=== PATIENT | male | born 1980 | race Two or more races ===

== ENCOUNTER 2017-06-27 15:23 | Inpatient (IN) | payer MEDICAID ==
[2017-06-27 16:04] LABS: BASOPHILS 0.3 % (0-2); EOSINOPHILS 1.3 % (0-7); HEMATOCRIT 33.5 % (42.0-54.0); HEMOGLOBIN 11.1 g/dL (13.5-17.5); IMMATURE GRANULOCYTES 0.4 % (0-5); LYMPHOCYTES 14.9 % (15-50); MCH 26.1 pg (26.0-34.0); MCHC 33.1 g/dL (31.0-37.0); MCV 78.6 fL (80.0-100.0); MEAN PLATELET VOLUME 9.7 fL (7.4-10.4); MONOCYTES 10.4 % (2-11); NEUTROPHILS 72.7 % (40-80); PLATELET COUNT 423 10x3/uL (130-400); RBC 4.26 10x6/uL (4.20-6.10); RDW 12.4 % (11.5-14.5); WBC 10.9 10x3/uL (4.8-10.8)
[2017-06-27 16:42] LABS: ALBUMIN 1.9 g/dL (3.4-5.0); ALKALINE PHOSPHATASE 145 U/L (46-116); ALT (SGPT) 60 U/L (10-68); BILIRUBIN - TOTAL 0.11 mg/dL (0.2-1.3); CALC OSMOLALITY 274 mosm/kg (275-300); CALCIUM 8.3 mg/dL (8.5-10.1); CARBON DIOXIDE 25.9 mmol/L (21.0-32.0); CHLORIDE - SERUM 94 mmol/L (98-107); GLUCOSE 372 mg/dL (74-106); POTASSIUM - SERUM 4.1 mmol/L (3.5-5.1); PROTEIN - SERUM 6.7 g/dL (6.4-8.2); SODIUM 130 mmol/L (136-145); UREA NITROGEN 9 mg/dL (7-18); eGFR NON AFRICAN AMERICAN 89 mL/min (90-120)
[2017-06-27 16:57] LABS: HEMOGLOBIN A1C 12.5 % (4.8-6.0)
[2017-06-27 17:36] VITALS: BP 137/92; BMI 29.6
--- NOTE | 2017-06-27 19:35 | NUR ---
RECIEVED SHIFT REPORT. PT IS LYING IN BED. ALERT AND ORIENTED AND ABLE TO VERBALIZE NEEDS. IV IS PATENT AND FLUIDS ARE RUNNING PER ORDER. PT IS AMBULATORY BUT WAS INSTRUCTED TO CALL FOR ANY ASSISTANCE. PT DENIES ANY PAIN AT THIS TIME. NO NEEDS ARE VERBALIZED AT THIS TIME. WILL CONTINUE TO MONITOR. SIDE RAILS ARE UP X 2. BED IS IN LOWEST POSITION. CALL LIGHT IS WITHIN REACH.
[2017-06-27 20:00] VITALS: BP 133/85
--- NOTE | 2017-06-27 21:50 | NUR ---
PT OFF FLOOR FOR CT AT THIS TIME.
--- NOTE | 2017-06-27 22:10 | NUR ---
PT RETURNED TO FLOOR FROM CT. FLUIDS HOOKED BACK UP. NO NEEDS VOICED. WILL MONITOR. SIDE RAILS X 2. BED LOW. CALL LIGHT IN REACH.
--- NOTE | 2017-06-27 22:19 | NUR ---
SHIFT ASSESMENT COMPLETED. ANTIBIOTIC HUNG PER ORDER. PT RECIEVED 8 UNITS INSULIN PER SLIDING SCALE FOR BYMJ=440. NO NEEDS ARE VOICED. WILL MONITOR. SIDE RAILS X 2. BED LOW. CALL LIGHT IN REACH.
[2017-06-28] VITALS (12 sets, daily range): BP systolic 118–175; BP diastolic 68–107
[2017-06-28 05:14] LABS: BASOPHILS 0.3 % (0-2); EOSINOPHILS 2.3 % (0-7); HEMATOCRIT 32.9 % (42.0-54.0); IMMATURE GRANULOCYTES 0.6 % (0-5); LYMPHOCYTES 18.9 % (15-50); MCHC 33.4 g/dL (31.0-37.0); MCV 77.8 fL (80.0-100.0); MEAN PLATELET VOLUME 9.4 fL (7.4-10.4); MONOCYTES 9.2 % (2-11); NEUTROPHILS 68.7 % (40-80); PLATELET COUNT 485 10x3/uL (130-400); RBC 4.23 10x6/uL (4.20-6.10); RDW 12.5 % (11.5-14.5); WBC 10.2 10x3/uL (4.8-10.8)
[2017-06-28 05:41] LABS: ALBUMIN 1.9 g/dL (3.4-5.0); ALKALINE PHOSPHATASE 141 U/L (46-116); ALT (SGPT) 64 U/L (10-68); BILIRUBIN - TOTAL 0.22 mg/dL (0.2-1.3); CALC OSMOLALITY 270 mosm/kg (275-300); CALCIUM 8.4 mg/dL (8.5-10.1); CARBON DIOXIDE 24.9 mmol/L (21.0-32.0); CHLORIDE - SERUM 98 mmol/L (98-107); POTASSIUM - SERUM 3.9 mmol/L (3.5-5.1); PROTEIN - SERUM 7.4 g/dL (6.4-8.2); SODIUM 133 mmol/L (136-145); UREA NITROGEN 9 mg/dL (7-18); eGFR NON AFRICAN AMERICAN 89 mL/min (90-120)
[2017-06-28 05:44] LABS: GLUCOSE 199 mg/dL (74-106)
--- NOTE | 2017-06-28 08:24 | NUR ---
AWAKE AND ALERT. ORIENTED X3. NO C/O AT THIS TIME. LUNGS ARE CLEAR BILATERALLY, NO COUGH NOTED. SKIN IS INTACT WITHOUT REDNESS EXCEPT LEFT SIDE OF GROIN WHICH IS REDDENED AND HARD.VERY TENDER TO TOUCH. WILL MONITOR. IV TO LEFT FOREARM IS PATENT WITHOUT REDNESS AT INSERTION SITE. NPO AT THIS TIME FOR SURGERY.
--- NOTE | 2017-06-28 08:30 | NUR ---
WAS UP TO SHOWER PER SELF. NO DIZZINESS OR PAIN WITH ACTIVITY. DENIES NEEDS
--- NOTE | 2017-06-28 10:40 | NUR ---
RESTING QUIELTY AT THIS TIME. DENIES NEEDS. FAMILY AT [facility].
--- NOTE | 2017-06-28 11:35 | NUR ---
OFF UNIT VIA BED FOR SURGERY.
--- NOTE | 2017-06-28 13:51 | NUR ---
PT BP 175/107. APRESOLINE 10MG IV GIVEN. WILL CONTINUE TO MONITOR
--- NOTE | 2017-06-28 15:27 | OP ---
PATIENT NAME: AMBREEN SEXTON MEDICAL RECORD: [id number] :78 LOCATION:[facility] [id number] ADMISSION DATE:06/27/17 SURGEON: DIMA BERNARDO MD DATE OF OPERATION: 06/28/2017 SURGEON: Dima Bernardo MD PREOPERATIVE DIAGNOSIS: Cellulitis with abscess of the perineum. POSTOPERATIVE DIAGNOSIS: Cellulitis with abscess of the perineum. PROCEDURE PERFORMED: Incision and drainage of complex multiloculated perineal abscess. Total size 12 x 6 x 4 cm. ANESTHESIA: General. COMPLICATIONS: None. SPECIMENS: 1. Tissue culture. 2. Fluid culture. 3. Gram stain with anaerobic and aerobic cultures. Case was grossly contaminated. ESTIMATED BLOOD LOSS: 20 cc. OPERATIVE COURSE: After consent was obtained, the patient was taken to the operating room and placed in the supine position on the operating table. Next, general anesthesia was given via endotracheal intubation. After a timeout was performed to confirm the correct patient and procedure, the patient was placed in the [facility][note 3] stirrups. The perineum was prepped and draped in typical sterile fashion. There was active extravasation of purulent material from a small skin opening in the left groin crease. A skin incision was made through the opening with a 15 blade scalpel. An ellipse of tissue was excised and sent for tissue culture approximately 6 cm x 1 cm. Thereafter, finger dissection was used to break up multiple loculations approximately 20 cc of purulent fluid were collected and sent for fluid culture. Approximately 100 cc of pus was expressed from the wound. The wound was copiously irrigated and suctioned. All necrotic tissue was excised using electrocautery. The wound was then packed with Kerlix gauze soaked in iodoform and hydrogen peroxide. At the end of the case, all needle and instrument counts were correct. No complications occurred. The patient was extubated and transferred to the PACU in stable condition. TRANSINT:[id number] Voice Confirmation ID: [id number] DOCUMENT ID: [id number] DIMA BERNARDO MD at 1527 CC: [id number] DICTATION DATE: 06/28/17 1229 SPRING FORMER MACHINE: 06/28/17 1243 [place] [address]
[2017-06-29] VITALS (7 sets, daily range): BP systolic 134–153; BP diastolic 83–92
[2017-06-29 06:37] LABS: BASOPHILS 0.2 % (0-2); EOSINOPHILS 3.4 % (0-7); HEMATOCRIT 30.9 % (42.0-54.0); HEMOGLOBIN 10.1 g/dL (13.5-17.5); IMMATURE GRANULOCYTES 0.6 % (0-5); LYMPHOCYTES 21.1 % (15-50); MCH 25.8 pg (26.0-34.0); MCHC 32.7 g/dL (31.0-37.0); MCV 78.8 fL (80.0-100.0); MEAN PLATELET VOLUME 9.1 fL (7.4-10.4); MONOCYTES 9.4 % (2-11); NEUTROPHILS 65.3 % (40-80); PLATELET COUNT 479 10x3/uL (130-400); RBC 3.92 10x6/uL (4.20-6.10); RDW 12.6 % (11.5-14.5); WBC 9.5 10x3/uL (4.8-10.8)
[2017-06-29 07:05] LABS: ALBUMIN 1.7 g/dL (3.4-5.0); ALKALINE PHOSPHATASE 126 U/L (46-116); ALT (SGPT) 59 U/L (10-68); CALC OSMOLALITY 268 mosm/kg (275-300); CALCIUM 8.5 mg/dL (8.5-10.1); CARBON DIOXIDE 26.5 mmol/L (21.0-32.0); CHLORIDE - SERUM 101 mmol/L (98-107); CREATININE - SERUM 0.8 mg/dL (0.6-1.3); GLUCOSE 158 mg/dL (74-106); POTASSIUM - SERUM 4.1 mmol/L (3.5-5.1); PROTEIN - SERUM 6.6 g/dL (6.4-8.2); SODIUM 134 mmol/L (136-145); UREA NITROGEN 7 mg/dL (7-18); VANCOMYCIN - TROUGH 9.5 ug/mL (10.0-20.0); eGFR NON AFRICAN AMERICAN > 90 mL/min (90-120)
--- NOTE | 2017-06-29 07:30 | NUR ---
RECIEVED PT DURING WALKING ROUNDS. PT RESTING IN BED WITH NO COMPLAINTS OF PAIN OR DISCOMFORT AT THIS TIME. ASSESSMENT DONE PER FLOWSHEET. BED IN LOW POSITION AND CALL LIGHT WITHIN REACH. WILL CONTINUE TO MONITOR.
--- NOTE | 2017-06-29 11:09 | NUR ---
NUTRITION F/U RECEIVED CONSULT FOR DIABETIC TEACHING. PROVIDED WRITTEN MATERIAL. DISCUSSED SOURCES OF CARBOHYDRATE, SERVING SIZES. TAUGHT LABEL READING. PT ATTENTIVE. ALSO DISCUSSED CHECKING BLOOD SUGAR AND RECORDING. RD FOLLOWING
[2017-06-30 05:05] VITALS: BP 146/92
[2017-06-30 06:24] LABS: BASOPHILS 0.1 % (0-2); EOSINOPHILS 3.6 % (0-7); HEMATOCRIT 31.6 % (42.0-54.0); HEMOGLOBIN 10.4 g/dL (13.5-17.5); IMMATURE GRANULOCYTES 0.6 % (0-5); LYMPHOCYTES 19.1 % (15-50); MCH 26.1 pg (26.0-34.0); MCHC 32.9 g/dL (31.0-37.0); MCV 79.4 fL (80.0-100.0); MEAN PLATELET VOLUME 9.2 fL (7.4-10.4); MONOCYTES 9.7 % (2-11); NEUTROPHILS 66.9 % (40-80); PLATELET COUNT 502 10x3/uL (130-400); RBC 3.98 10x6/uL (4.20-6.10); RDW 12.7 % (11.5-14.5); WBC 8.9 10x3/uL (4.8-10.8)
[2017-06-30 06:50] LABS: ALBUMIN 1.7 g/dL (3.4-5.0); ANION GAP 13.1 mmol/L (8-16); BILIRUBIN - TOTAL 0.3 mg/dL (0.2-1.3); CALCIUM 8.6 mg/dL (8.5-10.1); CARBON DIOXIDE 24.2 mmol/L (21.0-32.0); CREATININE - SERUM 1.2 mg/dL (0.6-1.3); POTASSIUM - SERUM 4.3 mmol/L (3.5-5.1); PROTEIN - SERUM 6.9 g/dL (6.4-8.2)
--- NOTE | 2017-06-30 08:10 | NUR ---
AWAKE AND ALERT. ORIENTED X3. NO C/O AT THIS TIME. LUNGS ARE CLEAR BIALTERALLY, NO COUGH NOTED. SKIN IS INTACT WITHOUT REDNESS EXCEPT TO LEFT GROIN WOUND WHICH HAS A DRY INTACT DRESSING IN PLACE. IV TO LEFT FOREARM IS PATENT WITHOUT REDNESS AT INSERTION SITE. DENIES NEEDS.
[2017-06-30 08:33] VITALS: BP 156/94
--- NOTE | 2017-06-30 10:00 | NUR ---
RESTING QUIETLY IN BED. DENIES NEEDS.
--- NOTE | 2017-06-30 11:55 | NUR ---
GIVEN 0.5MG DILAUDID SLOW IVP PROIR TO DRESSING CHANGE FOR PAIN CONTROL. WILL MONITOR.
--- NOTE | 2017-06-30 12:00 | NUR ---
FSBS 216. GIVEN 12 UNITS REGLAR SUBQ PER SS. DRESSING CHANGED TO LEFT GROIN. TOLERATED VERY WELL WITH ONLY MONOR C/O PAIN. WOUND IS CLEAN WITHOUT ODOR, NICE BEEFY RED.
[2017-06-30 12:26] VITALS: BP 136/89
--- NOTE | 2017-06-30 14:30 | NUR ---
PLACED IN ISOLATION PER LAB. RESTING QUIETLY IN BED. ALL QUESTIONS ANSWERED.
--- NOTE | 2017-06-30 17:00 | NUR ---
FSBS 222. GIVEN 12 UNITS REGULAR SUBQ PER SS. NO CHANGES NOTED. SUPPER SERVED IN ROOM. ATE ALL OF MEAL.
[2017-06-30 17:06] VITALS: BP 139/86
--- NOTE | 2017-06-30 17:33 | NUR ---
CM AWAKEN PATIENT TO DISCUSS DISCHARGE PLANNING. THE DOCTOR HAD ADVISED HIM THAT HE WOULD NEED HOME CARE. HE IS IN AGREEMENT WITH THE PLAN. HE WILL DISCUSS WHICH PROVIDER WITH HIS MD. CM HAS INFORMED HIM OF THE 5 PROVIDERS FOR HIS AREA. THE PATIENT IS . HAS FAMILY SUPPORT. WAS INDEPENDENT IN ADL'S PRIOR TO ADMISSION. PCP- [facility]- GLUCOMETER- HOWEVER HE NEEDS A NEW ONE. WILL HAVE TRANSPORTATION TO HOME. PATIENT HAS NO QUESTIONS AT THIS TIME. HAS AMBULATED IN HIS ROOM. PRIMARILY HAS PAIN WITH HIS DRESSING CHANGES. CONTINUES W/ IVFS AND IVAB THERAPY. CM TO FOLLOW TO ASSIST W/ DISCHARGE PLANNING. PATIENT WILL NEED 3-4 DAYS OF DRESSING SUPPLIES AT DISCHARGE UNTIL HOME HEALTH CAN ORDER HIS SUPPLIES. CM ADVISED THE PATIENT HE CAN OBTAIN A NEW GLUCOMETER AT [facility] OR [facility] AT A REASONABLE COST FOR GLUCOMETER AND STRIPS. CM TO FOLLOW TO ASSIST W/ DC PLANNING.
[2017-06-30 21:56] VITALS: BP 133/89
[2017-07-01 00:26] VITALS: BP 144/88
--- NOTE | 2017-07-01 03:27 | NUR ---
ASSESSED AT THE BEGINNING OF THE SHIFT. PT IS ALERT AND ORIENTED, ABLE TO VERBALIZE NEEDS. HE IS GETTING UP TO THE BATHROOM NOW AND WHILE IN THE BATHROOM IS CHANGING THE OUTER GAUZE TO HIS DRESSING WHEN IT COMES OFF. HE IS WEARING THE STRETCH BRIEFS TO KEEP IT IN PLACE. HE IS ABLE TO TURN AND REPOSION FOR COMFORT. HIS WAS AT THE BEDSIDE UNTIL BEDTIME. HIS BLOOD SUGAR WAS ADRESSED AT 1999 BUT AT MIDNIGHT HE HAD JUST GOTTEN TO SLEEP SO WE DID NOT DO IT. WILL BE DOING A 4 AM ONE. HE IS NOW ON ISOLATION FOR STAPH. THE BED IS LOW, RAILS UP X'S 2 WITH CALL LIGHT AT HAND.
[2017-07-01 05:07] LABS: BASOPHILS 0.2 % (0-2); EOSINOPHILS 4.6 % (0-7); HEMATOCRIT 31.5 % (42.0-54.0); HEMOGLOBIN 10.3 g/dL (13.5-17.5); IMMATURE GRANULOCYTES 0.5 % (0-5); LYMPHOCYTES 20.5 % (15-50); MCH 25.9 pg (26.0-34.0); MCHC 32.7 g/dL (31.0-37.0); MCV 79.1 fL (80.0-100.0); MEAN PLATELET VOLUME 9.1 fL (7.4-10.4); MONOCYTES 8.9 % (2-11); NEUTROPHILS 65.3 % (40-80); PLATELET COUNT 523 10x3/uL (130-400); RBC 3.98 10x6/uL (4.20-6.10); RDW 12.8 % (11.5-14.5); WBC 8.6 10x3/uL (4.8-10.8)
[2017-07-01 05:40] LABS: ALBUMIN 1.7 g/dL (3.4-5.0); ALKALINE PHOSPHATASE 126 U/L (46-116); ALT (SGPT) 49 U/L (10-68); BILIRUBIN - TOTAL 0.24 mg/dL (0.2-1.3); CALCIUM 8.9 mg/dL (8.5-10.1); CARBON DIOXIDE 25.8 mmol/L (21.0-32.0); CHLORIDE - SERUM 103 mmol/L (98-107); CREATININE - SERUM 1.1 mg/dL (0.6-1.3); POTASSIUM - SERUM 4.1 mmol/L (3.5-5.1); PROTEIN - SERUM 7.1 g/dL (6.4-8.2); SODIUM 138 mmol/L (136-145); UREA NITROGEN 9 mg/dL (7-18); eGFR NON AFRICAN AMERICAN 79 mL/min (90-120)
[2017-07-01 05:47] VITALS: BP 148/92
[2017-07-01 05:48] LABS: CALC OSMOLALITY 275 mosm/kg (275-300); GLUCOSE 121 mg/dL (74-106)
--- NOTE | 2017-07-01 07:44 | NUR ---
AWAKE AND AELRT. ORIENTED X3. NO C/O THIS AM. LUNGS ARE CLEAR BIALTERALLY, NO COUGH NOTED. SKIN IS INTACT WITHOUT REDNESS EXCEPT WOUND TO LEFT GROIN AREA WHCIH HAS A DRY INTACT DRESSING IN PLACE. IV TO LEFT FOREARM IS PATENT WITHOUT REDNESS AT INSERTION SITE. DENIES NEEDS.
[2017-07-01 08:10] VITALS: BP 153/92
--- NOTE | 2017-07-01 10:00 | NUR ---
DRESSING REMOVED PER DR. MONGE. REDRESSED PER NURSING. TOLERATED VERY WELL WITH FEW C/O INCREASED PAIN.
[2017-07-01] MEDS ORDERED: LEVAQUIN500 MG PO (11:05)
[2017-07-01] MEDS ORDERED: BACTRIM DS TABL1 TAB PO (11:06)
[2017-07-01] MEDS ORDERED: HYDROCODONE-APA1 TAB PO (11:06)
[2017-07-01] MEDS ORDERED: NICODERM C1 PATCH .1 TRANSDERM (11:12)
[2017-07-01] MEDS ORDERED: GLUCOPHAGE500 MG PO (11:12)
[2017-07-01] MEDS ORDERED: COLACE100 MG PO (11:12)
[2017-07-01] MEDS ORDERED: FLORAJEN3 CAPS460 MG PO (11:12)
[2017-07-01] MEDS ORDERED: ZESTORETIC 10/11 TAB PO (11:12)
[2017-07-01] MEDS ORDERED: GLUCOPHAGE1000 MG PO (12:09)
[2017-07-01 12:51] VITALS: BP 154/93
--- NOTE | 2017-07-01 14:01 | NUR ---
DISCHARGED TO HOME AMBULATORY WITH FAMILY. DISCHARGE INSTRUCTIONS GIVEN BOTH VERBALLY AND WRITTEN. ALL QUESTIONS ANSWERED. PATIENT AND FAMILY VERBALIZED UNDERSTANDING OF SAME. NEEDED PRESCRIPTIONS GIVNE TO PATIENT AND OTHERS ESCRIBED TO PHARMACY OF CHOICE. IV TO LEFT FOREARM D/C WITH CATHETER INTACT. ALL BELONGINGS WITH PATIENT.
--- NOTE | 2017-07-01 14:35 | NUR ---
LATE ENTRY 1300 PATIENT FOR DISCHARGE TO HOME W/ HOME HEALTH TODAY. HE HAS SELECTED [facility]. HIS FAMILY IS PROVIDING TRANSPORTATION. TC TO [facility]. MIKE ,THE NURSE PERSONAL FITNESS MANAGER, SHE WILL CALL BACK. 1430 REC CB FROM MIKE. DISCUSSED REFERRAL. FAXED CLINICAL AND DISCHARGE INSTRUCTIONS. PLAN FOR PATIENT TO BE SEEN ON SUNDAY.
== END 2017-07-01 14:05 | disposition home health service (06) | DRG 580 ==
LOC: D.MS 15:23
PROVIDERS: Family Medicine; Surgery; ADMIT Family Medicine
PROC: 0H99XZZ Drainage of Perineum Skin, External Approach (ICD-10-PCS; 2017-06-28)
PROC: 0HB9XZZ Excision of Perineum Skin, External Approach (ICD-10-PCS; principal; 2017-06-28 12:00)
DX: L02.215 Cutaneous abscess of perineum (principal); F17.203 Nicotine dependence unspecified, with withdrawal; L03.315 Cellulitis of perineum; I10 Essential (primary) hypertension; E11.65 Type 2 diabetes mellitus with hyperglycemia; Z91.19 Patient's noncompliance with other medical treatment and regimen; F10.20 Alcohol dependence, uncomplicated; E78.5 Hyperlipidemia, unspecified; D64.9 Anemia, unspecified; B95.61 Methicillin susceptible Staphylococcus aureus infection as the cause of diseases classified elsewhere; B95.1 Streptococcus, group B, as the cause of diseases classified elsewhere